=== PATIENT | male | born 1995 | race Caucasian/White ===

== ENCOUNTER 2021-02-17 00:29 | Emergency (ER) | payer MEDICAID, SELFPAY ==
[~2021-02-17] VITALS: Ht 180.3 cm; Wt 68.0 kg
--- NOTE | 2021-02-17 00:29 | NUR ---
Placed in room 06 . Placed on classroom monitor, blood pressure machine and pulse oximeter. To gown for exam. Side rails up. Report given to BRI Crowder
--- NOTE | 2021-02-17 00:32 | NUR ---
# 18 gauge angiocath placed to RAC. Use of asceptic technique. Opsite placed over site. Blood return noted. Blood for lab drawn from site. Flushed with 10 cc of normal saline. No evidence of infiltration noted. Patient tolerated well.
[2021-02-17 00:39] VITALS: BP_SYST 132
[2021-02-17] MEDS ORDERED: DIPHENHYDRAMINE INJ 50 MG/ML VIAL IM ONE (00:45)
[2021-02-17] MEDS ORDERED: LORazepam 2 MG/ML VIAL IM ONE (00:45)
[2021-02-17] MEDS ORDERED: HALOPERIDOL LACTATE 5 MG/ML VIAL IM ONE (00:45)
--- NOTE | 2021-02-17 00:45 | NUR ---
SPOKE WITH PTs MOTHER LUCY, STATED THAT HE HAS BEEN A PT AT [facility] ABOUT 6-7 YEARS AGO.
[2021-02-17] MEDS ORDERED: LORazepam 2 MG/ML VIAL ONE (00:46)
[2021-02-17] MEDS ORDERED: DIPHENHYDRAMINE INJ 50 MG/ML VIAL ONE (00:46)
[2021-02-17] MEDS ORDERED: HALOPERIDOL LACTATE 5 MG/ML VIAL ONE (00:47)
--- NOTE | 2021-02-17 00:49 | NUR ---
ER Dr. Joseph at bedside examining patient.
--- NOTE | 2021-02-17 00:58 | NUR ---
PT BIB [facility] FOR BEING FOUND WALKING IN FRONT OF HOUSE NAKED SPEAKING INCOHERENTLY AND WALKING IN TO TRAFFIC. [facility] AND IS ON A 5150 HOLD. DTO, DTS. PT WAS BROUGHT WITH 4 POINT RESTRAINTS. SPEAKING AND YELLING INCOHERENTLY IN THE ER. PT IS A&OX 2. KEEPS GOING INTO RAMBLINGS .
--- NOTE | 2021-02-17 01:24 | NUR ---
# 16 FR In and Out catheter with use of sterile technique. Immediate return of 200 ml yellow cloudy urine noted. Urine sample collected and sent to lab. Pt tolerated procedure well Patient unable to toilet self.
[2021-02-17 01:47] LABS: BASOPHILS # (AUTO) 0.1 K/uL (0.0-0.2); EOSINOPHILS # (AUTO) 0.1 K/uL (0.0-0.4); EOSINOPHILS % (AUTO) 0.7 % (0.0-4.0); HEMATOCRIT 39.5 % (36-54); HEMOGLOBIN 13.6 g/dL (14.0-18.0); LYMPHOCYTES # (AUTO) 2.5 K/uL (1.0-5.5); LYMPHOCYTES % (AUTO) 25.7 % (20.5-51.5); MEAN CORPUSCULAR HEMOGLOBIN 33 pg (27-31); MEAN CORPUSCULAR HGB CONC 35 % (32-36); MEAN CORPUSCULAR VOLUME 95 fL (79.0-98.0); MONOCYTES # (AUTO) 0.5 K/uL (0.0-1.0); MONOCYTES % (AUTO) 5.6 % (1.7-9.3); NEUTROPHILS # (AUTO) 6.5 K/uL (1.8-7.7); PLATELET COUNT (AUTO) 308 K/uL (130-430); RED BLOOD CELL COUNT(AUTO) 4.14 MIL/uL (4.2-6.2); RED CELL DISTRIBUTION WIDTH 12.9 % (9.0-15.0); WHITE BLOOD COUNT (AUTO) 9.7 K/uL (4.8-10.8)
[2021-02-17 01:51] LABS: ANION GAP 13 (5-15); CALCIUM 8.7 mg/dL (8.4-11.0); CHLORIDE 105 mmol/L (98-107); CREATININE 1.04 mg/dL (0.55-1.30); GLUCOSE 120 mg/dL (70-99); POTASSIUM 3.8 mmol/L (3.5-5.1); SODIUM SERUM 140 mmol/L (136-145); UREA NITROGEN, BLOOD 21 mg/dL (8-21)
[2021-02-17 01:53] LABS: BILIRUBIN,URINE NEGATIVE (NEGATIVE); BLOOD, URINE 2+ (NEGATIVE); CLARITY/URINE TURBID (CLEAR); COLOR,URINE YELLOW (YELLOW); GLUCOSE,URINE NEGATIVE (NEGATIVE); KETONES,URINE TRACE (NEGATIVE); LEUKOCYTE ESTERASE ,URINE NEGATIVE (NEGATIVE); NITRITE, URINE NEGATIVE (NEGATIVE); PH,URINE 6.5 (5.0-8.0); PROTEIN URINE 2+ (NEGATIVE); UROBILINOGEN,URINE 0.2 (0.2-1.0)
[2021-02-17 01:55] LABS: ALANINE AMINOTRANSFERASE 53 U/L (12-78); ALBUMIN 3.6 g/dL (3.4-4.8); ASPARTATE AMINOTRANSFERASE 38 U/L (10-37); CHOLESTEROL 123 mg/dL (<200); HDL CHOLESTEROL 77 mg/dL (>45); LDL CHOLESTEROL 52 mg/dL (<100); TOTAL BILIRUBIN 0.5 mg/dL (0.0-1.0); TRIGLYCERIDES 28 mg/dL (30-150)
[2021-02-17 01:59] LABS: GFR AFRICAN AMERICAN 110 mL/min (>90)
--- NOTE | 2021-02-17 02:01 | NUR ---
ER Dr. Joseph at bedside examining patient.
[2021-02-17 02:02] LABS: BARBITURATE, URINE NEGATIVE (NEG <=200); BENZODIAZEPINE, URINE NEGATIVE (NEG <=150); CANNABINOID, URINE POSITIVE (NEG <=50); COCAINE, URINE NEGATIVE (NEG <=150); METHAMPHETAMINES SCREEN,URINE NEGATIVE (NEG <=500); OPIATE, URINE NEGATIVE (NEG <=100); PHENCYCLIDINE SCREEN,URINE NEGATIVE (NEG <=25); UR TRICYCLIC ANTIDEPRESSANTS NEGATIVE (NEG <=300); URINE AMPHETAMINE NEGATIVE (NEG <=500); URINE METHADONE NEGATIVE (NEG <=200); URINE OXYCODONE SCREEN NEGATIVE (NEG <=100); URINE PROPOXYPHENE SCREEN NEGATIVE (NEG <=300)
[2021-02-17 02:12] LABS: ACETAMINOPHEN < 1 ug/mL (1-30); ALCOHOL, BLOOD < 3 mg/dL (<10)
[2021-02-17 02:49] LABS: BACTERIA,URINE FEW /HPF (None Seen); WBC,URINE 0-3 /HPF (0-3)
[2021-02-17 02:50] LABS: URINE AMORPHOUS URATE 2+ /HPF (None Seen)
[2021-02-17 03:02] LABS: CKMB RELATIVE INDEX 1.4 (0.0-2.9); CREATINE KINASE MB 9.2 ng/mL (0-3.6)
[2021-02-17] MEDS ORDERED: KETAMINE 30 MG/3 ML SYRINGE IM ONE (03:15)
[2021-02-17] MEDS ORDERED: KETAMINE HCL 500 MG/10 ML VIAL ONE (04:57)
--- NOTE | 2021-02-17 05:30 | NUR ---
pt was trying to get up and out of bed. pt given ketamine as ordered by dr olvera. pt is being monitored
[2021-02-17] MEDS ORDERED: NACL 0.9% 1,000 ML IV ONE (06:00)
--- NOTE | 2021-02-17 06:20 | NUR ---
pt taken to CT for a scan. unable to get scan due to pt moving around while trying to move to ct scanner. dr. rowe aware.
[2021-02-17] MEDS ORDERED: LORazepam 2 MG/ML VIAL IVP ONE (06:45)
--- NOTE | 2021-02-17 07:11 | NUR ---
pt endorsed to Alonso REDMAN
--- NOTE | 2021-02-17 07:45 | NUR ---
Patient transported to radiology via gurney, accompanied by staff.
--- NOTE | 2021-02-17 07:54 | NUR ---
Pt back from CT reattached to monitor.
--- NOTE | 2021-02-17 08:51 | NUR ---
Faxed facesheet, clinicals, and 5150 hold to the follwoing [facility] facilites: [facility] awaiting call back for 5150 placement.
--- NOTE | 2021-02-17 09:29 | NUR ---
Spoke with Annabella (Mom). [phone]. Updated on pt status. Mother expressed fear of son and expressed that she felt her son would hurt himself or her or somene else.
--- NOTE | 2021-02-17 09:56 | NUR ---
SPOKE WITH MOTHER LUCY, MOTHER WANTING NURSES FIRST AND LAST NAMES, PHONE NUMBERS, DRS NAME ETC. EXPLAINED TO HER THAT I WILL NOT BE GIVING OUT THAT INFORMATION AND FIRST NAMES WERE GIVEN PER REQUEST. [employer] NOTIFIED. SHE STATES SHE MIGHT NEED "TO LOOK INTO IT". PT IS A 25 Y/O ON A 1928
--- NOTE | 2021-02-17 10:02 | NUR ---
Pt asleep in [facility] VSS no distress noted at this time.
--- NOTE | 2021-02-17 11:00 | NUR ---
Ambulated to restroom and then back to bed and reattached to monitor. Given warm blankets.
--- NOTE | 2021-02-17 12:39 | NUR ---
Spoke with raffi from [facility] for placement and was informed the time on the hold needs to redone for the pt to be able to be accepted. The officer who placed the hold wrote a time of 1200 instead of 0000.
--- NOTE | 2021-02-17 12:43 | NUR ---
spoke with officer Jarod from [facility] and updated them on the need for a new hold with correct time. They will call back with an update.
--- NOTE | 2021-02-17 13:00 | NUR ---
Pt asleep in [facility] VSS no distress noted at this time.
--- NOTE | 2021-02-17 13:20 | NUR ---
antonia Landers will accpet patient under care of . Drop off in [place] per oL. Report given to Lo
--- NOTE | 2021-02-17 13:59 | NUR ---
Pt ambulated to restroom independently. Gsit steady and straight no distress noted at this time.
--- NOTE | 2021-02-17 15:13 | NUR ---
Patient to be transferred to [place]. Is being transferred due to higher level of care. Receiving facility has accepting physician and available space. ER physician has signed transfer form. Patient or responsible republican has agreed to transfer and signed form. Patient belongings inventoried and will be sent with patient. Copy of nursing notes, lab reports, EKG, Physicians Orders and X-rays to be sent with patient. Report called to Lo at receiving facility. Receiving physician is Dr. Potter. [facility] has been called for transfer. ETA is now.
[2021-02-17 15:14] VITALS: BP_SYST 136
== END 2021-02-17 15:13 ==
LOC: SED 00:29
DX: R45.1 Restlessness and agitation (principal); R46.89 Other symptoms and signs involving appearance and behavior; R41.82 Altered mental status, unspecified; Z79.899 Other long term (current) drug therapy; Z20.822 Contact with and (suspected) exposure to COVID-19
CPT/HCPCS: 36415; 70450; 76376; 80053; 80061; 80307; 81000; 82550; 82553; 83036; 85025; 87426; 93005; 96361; 96372; 96374; 99285; G0480; G0481; G0482; J1200; J1630; J2060; J7030